=== PATIENT | female | born 1975 | race Caucasian/White ===

== ENCOUNTER 2022-08-25 03:40 | Inpatient (IN) | payer MEDICAID, OTHER ==
[~2022-08-25] VITALS: Ht 162.6 cm; Wt 67.7 kg
[2022-08-25] MEDS ORDERED: OLANZapine 5 MG RAPDIS TABLET PO PRN (06:00)
[2022-08-25] MEDS ORDERED: ZOLPIDEM TARTRATE 10 MG TABLET PO PRN (06:00)
[2022-08-25] MEDS ORDERED: LORazepam 2 MG TABLET PO PRN (06:00)
[2022-08-25 06:30] LABS: COVID AG,FIA SOURCE NASOPHARYNGEAL
[2022-08-25 06:59] LABS: BASOPHILS % (AUTO) 0.7 % (0.0-2.0); EOSINOPHILS % (AUTO) 0.8 % (1.0-6.0); HEMATOCRIT 34.3 % (36-46); HEMOGLOBIN 11.4 g/dL (12.0-16.0); LYMPHOCYTES # (AUTO) 1.8 K/uL (1.0-4.8); LYMPHOCYTES % (AUTO) 18.7 % (22.0-44.0); MEAN CORPUSCULAR HEMOGLOBIN 28.6 pg (26.0-34.0); MEAN CORPUSCULAR HGB CONC 33.3 G/dL (31.0-37.0); MEAN CORPUSCULAR VOLUME 86 fL (80-100); MONOCYTES # (AUTO) 0.7 K/uL (0.1-1.0); MONOCYTES % (AUTO) 7.6 % (2.0-9.0); NEUTROPHILS # (AUTO) 6.8 K/uL (1.8-7.7); NEUTROPHILS % (AUTO) 72.2 % (40.0-70.0); PLATELET COUNT (AUTO) 260 K/uL (150-450); RED BLOOD CELL COUNT(AUTO) 3.98 MIL/uL (4.00-5.20); RED CELL DISTRIBUTION WIDTH 13.9 % (11.5-14.5)
[2022-08-25 07:01] LABS: ANION GAP 9 mmol/L (8-16); CALCIUM, TOTAL 8.8 mg/dL (8.8-10.5); CARBON DIOXIDE 25 mmol/L (22-29); CHLORIDE 106 mmol/L (98-107); CREATININE 0.53 mg/dL (0.60-1.30); GLOMERULAR FILTR. RATE CALC > 60 mL/min (>60); GLUCOSE,RANDOM 116 mg/dL (70-110); POTASSIUM 3.1 mmol/L (3.5-5.1); SODIUM SERUM 140 mmol/L (136-145); UREA NITROGEN, BLOOD 8 mg/dL (7-18)
[2022-08-25 07:08] LABS: ALANINE AMINOTRANSFERASE 36 U/L (12-78); ALBUMIN 3.4 g/dL (3.4-5.0); ALKALINE PHOSPHATASE 76 U/L (46-116); ASPARTATE AMINOTRANSFERASE 51 U/L (15-37); BILIRUBIN,TOTAL 0.8 mg/dL (0.1-1.0); TOTAL PROTEIN, SERUM 6.9 g/dL (6.4-8.2)
[2022-08-25] MEDS ORDERED: POTASSIUM CHLORIDE 20 MEQ ER TABLET PO ONE ×3 (11:30→21:00)
[2022-08-25] MEDS ORDERED: HALOPERIDOL LACTATE 5 MG/ML VIAL ONE (12:20)
[2022-08-25] MEDS ORDERED: DiphenhydrAMINE HCL 50 MG/ML VIAL ONE (12:20)
[2022-08-25] MEDS ORDERED: DiphenhydrAMINE HCL 50 MG/ML VIAL IM ONE (12:30)
[2022-08-25] MEDS ORDERED: HALOPERIDOL LACTATE 5 MG/ML VIAL IM ONE (12:30)
[2022-08-25] MEDS ORDERED: LORazepam 2 MG/ML VIAL IM ONE (12:30)
[2022-08-25 12:46] VITALS: BP 126/72
[2022-08-25] MEDS ORDERED: TUBERCULIN, PURIFIED PROTEIN DERIVATIVE 5 TU/0.1 ML SYRINGE ID ONE (16:30)
[2022-08-25] MEDS ORDERED: LOPERAMIDE HCL 2 MG CAPSULE PO PRN (16:30)
[2022-08-25] MEDS ORDERED: ACETAMINOPHEN 325 MG TABLET PO PRN (16:30)
[2022-08-25] MEDS ORDERED: MAG HYDROX/AL HYDROX/SIMETH ES 30 ML SUSPENSION UDCUP PO PRN (16:30)
[2022-08-25] MEDS ORDERED: MAGNESIUM HYDROXIDE SUSPENSION 30 ML UDCUP PO PRN (16:30)
[2022-08-25] MEDS: DIVALPROEX SODIUM 500 MG ER TABLET PO SCH (21:00)
[2022-08-25] MEDS: OLANZapine 5 MG RAPDIS TABLET PO SCH (21:00)
[2022-08-25] MEDS: MELATONIN 5 MG TABLET PO SCH (21:00)
[2022-08-26 08:07] LABS: HEMOGLOBIN A1C 5.5 % (3.8-5.6)
[2022-08-26 08:24] LABS: CHOL/HDL RATIO 2.4 (3.9-5.7); FREE T4 (FREE THYROXINE) 1.46 ng/dL (0.76-1.46); POTASSIUM 3.7 mmol/L (3.5-5.1); THYROID STIMULATING HORMONE 0.28 uIU/mL (0.36-3.74)
[2022-08-26 08:26] VITALS: BP 123/80
[2022-08-26] MEDS: OMEGA-3/DHA/EPA/FISH OIL 1,000 MG CAPSULE PO SCH (08:27)
[2022-08-26] MEDS: NALTREXONE HCL 50 MG TABLET PO SCH (08:27)
[2022-08-26 20:03] VITALS: BP 127/76
[2022-08-26] MEDS: OLANZapine 5 MG RAPDIS TABLET PO SCH (20:41)
[2022-08-26] MEDS: DIVALPROEX SODIUM 500 MG ER TABLET PO SCH (20:41)
[2022-08-26] MEDS: MELATONIN 5 MG TABLET PO SCH (20:41)
[2022-08-27 08:00] VITALS: BP 119/73
[2022-08-27] MEDS: OMEGA-3/DHA/EPA/FISH OIL 1,000 MG CAPSULE PO SCH (09:21)
[2022-08-27] MEDS: NALTREXONE HCL 50 MG TABLET PO SCH (09:21)
[2022-08-27 20:05] VITALS: BP 147/77
[2022-08-27] MEDS: DIVALPROEX SODIUM 500 MG ER TABLET PO SCH (20:31)
[2022-08-27] MEDS: MELATONIN 5 MG TABLET PO SCH (20:32)
[2022-08-27] MEDS: OLANZapine 10 MG RAPDIS TABLET PO SCH (20:33)
[2022-08-28 08:14] VITALS: BP 148/72
[2022-08-28] MEDS: NALTREXONE HCL 50 MG TABLET PO SCH (09:03)
[2022-08-28] MEDS: OMEGA-3/DHA/EPA/FISH OIL 1,000 MG CAPSULE PO SCH (09:03)
[2022-08-28] MEDS: MELATONIN 5 MG TABLET PO SCH (20:53)
[2022-08-28] MEDS: DIVALPROEX SODIUM 250 MG ER TABLET PO SCH (20:53)
[2022-08-28] MEDS: OLANZapine 10 MG RAPDIS TABLET PO SCH (20:54)
[2022-08-29] MEDS: OMEGA-3/DHA/EPA/FISH OIL 1,000 MG CAPSULE PO SCH (08:27)
[2022-08-29] MEDS: NALTREXONE HCL 50 MG TABLET PO SCH (08:27)
[2022-08-29] MEDS: DIVALPROEX SODIUM 250 MG ER TABLET PO SCH (20:12)
[2022-08-29] MEDS: OLANZapine 10 MG RAPDIS TABLET PO SCH (20:13)
[2022-08-29] MEDS: MELATONIN 5 MG TABLET PO SCH (20:13)
[2022-08-30 08:15] VITALS: BP 135/86
[2022-08-30] MEDS: NALTREXONE HCL 50 MG TABLET PO SCH (08:18)
[2022-08-30] MEDS: OMEGA-3/DHA/EPA/FISH OIL 1,000 MG CAPSULE PO SCH (08:19)
[2022-08-30] MEDS: MELATONIN 5 MG TABLET PO SCH (20:03)
[2022-08-30] MEDS: DIVALPROEX SODIUM 250 MG ER TABLET PO SCH (20:03)
[2022-08-30] MEDS: OLANZapine 10 MG RAPDIS TABLET PO SCH (20:04)
[2022-08-30 20:10] VITALS: BP 124/90
[2022-08-31] MEDS: NALTREXONE HCL 50 MG TABLET PO SCH (08:05)
[2022-08-31] MEDS: OMEGA-3/DHA/EPA/FISH OIL 1,000 MG CAPSULE PO SCH (08:05)
[2022-08-31 08:24] VITALS: BP 119/71
[2022-08-31 20:09] VITALS: BP 133/85
[2022-08-31] MEDS: DIVALPROEX SODIUM 250 MG ER TABLET PO SCH (20:18)
[2022-08-31] MEDS: MELATONIN 5 MG TABLET PO SCH (20:18)
[2022-08-31] MEDS: OLANZapine 10 MG RAPDIS TABLET PO SCH (20:19)
[2022-08-31 22:14] VITALS: BP 116/71
[2022-09-01] MEDS: NALTREXONE HCL 50 MG TABLET PO SCH (08:11)
[2022-09-01] MEDS: OMEGA-3/DHA/EPA/FISH OIL 1,000 MG CAPSULE PO SCH (08:11)
[2022-09-01 08:14] VITALS: BP 122/79
[2022-09-01] MEDS ORDERED: DIVA-85 PO ×2 (14:53→15:59)
[2022-09-01] MEDS ORDERED: OLAN10TA26 PO ×2 (14:53→15:59)
[2022-09-01] MEDS ORDERED: OMEG-135 PO ×2 (14:53→15:59)
[2022-09-01] MEDS ORDERED: NALT50TA6 PO (14:53)
[2022-09-01] MEDS ORDERED: MELA5TAB40 PO ×2 (14:53→15:59)
[2022-09-01] MEDS ORDERED: NALT50TA PO (15:59)
[2022-09-01 16:17] VITALS: BP 127/78
== END 2022-09-01 18:04 | disposition home or self-care (01) | DRG 750 ==
LOC: EMS 03:41 → B3A 10:24
PROVIDERS: ADMIT Psychiatry & Neurology Psychiatry; ATTEND Psychiatry & Neurology Psychiatry
DX: F20.0 Paranoid schizophrenia (principal); R45.851 Suicidal ideations; D64.9 Anemia, unspecified; E87.6 Hypokalemia; Z20.822 Contact with and (suspected) exposure to COVID-19; Z55.9 Problems related to education and literacy, unspecified; Z59.00 Homelessness unspecified; Z63.9 Problem related to primary support group, unspecified; Z65.3 Problems related to other legal circumstances; Z79.899 Other long term (current) drug therapy
CPT/HCPCS: 80053; 80061; 80164; 83036; 84132; 84439; 84443; 84703; 85025; 86592; 99285; G0480; J1200; J1630; J2060; Q9967

== ENCOUNTER 2024-06-18 07:44 | Emergency (ER) | payer MEDICAID, OTHER ==
[~2024-06-18] VITALS: Ht 162.6 cm; Wt 65.9 kg
[~2024-06-18 07:44] MED LIST: DIVA-85 PO; MELA5TAB40 PO; NALT50TA6 PO; OLAN10TA26 PO; OMEG-135 PO
[2024-06-18 08:17] VITALS: TEMP 97.7
[2024-06-18] MEDS: LORazepam 1 MG TABLET PO ONE (10:05)
[2024-06-18 12:40] VITALS: BP 142/77; PULSE 84; RESP 18; O2SAT 98
== END 2024-06-18 13:30 | disposition home or self-care (01) ==
LOC: EMS 07:48
DX: M79.604 Pain in right leg (principal); F20.9 Schizophrenia, unspecified
CPT/HCPCS: 99285; Z7502; Z7610